=== PATIENT | male | born 1990 ===

== ENCOUNTER 2019-01-13 13:40 | Emergency (ER) | payer OTHER ==
[2019-01-13 13:50] VITALS: BP 152/83
[2019-01-13] MEDS ORDERED: RINGERS SOLUTION,LACTATED 1,000 ML IV PRN (14:15)
[2019-01-13] MEDS ORDERED: OXYCODONE-ACETAMINOPHEN 5-325 MG TABLET PO ONE (14:17)
--- NOTE | 2019-01-13 14:20 | ER Document Report ---
ED Eye Complaint - General Chief Complaint: Chemical Exposure in Eye Stated Complaint: EYE INJURY Time Seen by Provider: 01/13/19 14:10 Primary Care Provider: ALEJANDRA BARBOSA DO [ACTIVE STAFF] - Follow up as needed TRAVEL OUTSIDE OF THE [place] IN LAST 30 DAYS: No - HPI Patient complains to provider of: Chemical burn to right eye Onset: Just prior to arrival Eye location: Right Injury: Yes Occurred at: Work Quality of pain: Burning Severity: Moderate Pain Level: 4 Exposure: Alkaline chemical Associated symptoms: Burning, Pain Notes: Patient is a 28-year-old male who presents to the emergency room for foreign body/chemical burn to right eye, states he was working with mortar when it splashed up into his eye he attempted to flush it out with saline prior to coming to the emergency department but continues to have pain redness and tearing to the right eye, patient denies medical problems prior to today, denies pain or injury elsewhere - Related Data Allergies/Adverse Reactions: No Known Allergies Allergy (Unverified 01/13/19 13:44) Past Medical History - General Information source: Patient - Social History Smoking Status: Unknown if Ever Smoked Family History: Reviewed & Not Pertinent Review of Systems - Review of Systems Constitutional: No symptoms reported EENT: See HPI Cardiovascular: No symptoms reported Respiratory: No symptoms reported Gastrointestinal: No symptoms reported Genitourinary: No symptoms reported Male Genitourinary: No symptoms reported Musculoskeletal: No symptoms reported Skin: No symptoms reported Hematologic/Lymphatic: No symptoms reported Neurological/Psychological: No symptoms reported -: Yes All other systems reviewed and negative Physical Exam - Vital signs Vitals: Temp Pulse BP Pulse Ox 98.2 F 74 152/83 H 100 01/13/19 13:49 01/13/19 13:49 01/13/19 13:49 01/13/19 13:49 - Notes Notes: - General General appearance: Appears well, Alert In distress: None - HEENT Head: Normocephalic, Atraumatic - Respiratory Respiratory status: No respiratory distress - Cardiovascular Rhythm: Regular - Abdominal Inspection: Normal - Back Back: Normal - Extremities General upper extremity: Normal inspection General lower extremity: Normal inspection - Neurological Neuro grossly intact: Yes Orientation: AAOx4 Darshana Coma Scale Eye Opening: Spontaneous Edison Coma Scale Verbal: Oriented Darshana Coma Scale Motor: Obeys Commands Darshana Coma Scale Total: 15 - Psychological Associated symptoms: Normal affect, Normal mood - Skin Skin Temperature: Warm Skin Moisture: Dry Skin Color: Normal - HEENT Eyes: Tears Conjunctiva: Injected - Right side Cornea: Corneal ulcer, Flourescein stain uptake Extraocular movements intact: Yes Eyelashes: Matted Course - Re-evaluation Re-evalutation: 01/13/19 15:52 Patient discussed with on-call ophthalmology, Dr. Barbosa, recommends starting patient on a fourth generation fluoroquinolone antibiotic eyedrop and provide prescription for erythromycin ointment as well as it can be soothing, advised the patient about his likely continued pain through at least the next 24 hours, requested patient call his office [facility] to arrange a follow-up appointment for tomorrow morning to reevaluate, patient was given these instructions and advised to return if any additional concerns, patient acknowledges understanding and agreement with this plan - Vital Signs Vital signs: Temp Pulse Resp BP Pulse Ox 98.2 F 74 152/83 H 100 01/13/19 13:49 01/13/19 13:49 01/13/19 13:49 01/13/19 13:49 Procedures - Eye Procedure Right Time completed: 16:00 Eye Irrigated w/ Saline (ccs): 1,000 - LR Foreign body removal: Right Alcaine Drops Administered: Yes Fluorescein applied: Right Eyes picture: 1 - chemical burn/ulceration Discharge - Discharge Clinical Impression: Alkaline chemical burn of cornea Qualifiers: Encounter type: initial encounter Laterality: right Qualified Code(s): T54.3X1A - Toxic effect of corrosive alkalis and alkali-like substances, accidental (unintentional), initial encounter Condition: Stable Disposition: HOME, SELF-CARE Instructions: Sandoval ([facility]), Chemical in the Eye ([facility]), Eyedrop Use ([facility]), Oral Narcotic Medication ([facility]) Additional Instructions: Call Dr Barbosa's office immediately to arrange for a follow-up appointment first thing tomorrow morning. Return to the emergency room immediately if symptoms worsen or any additional concerns. Prescriptions: Erythromycin Base [Erythromycin Oph 1 gm Oint Ud] 1 applic OP QID #1 tube Moxifloxacin HCl [Moxifloxacin] 3 ml OP QID #1 drops Oxycodone HCl/Acetaminophen [Percocet 5-325 mg Tablet] 1 - 2 tab PO ASDIR PRN #15 tablet PRN Reason: Forms: Return to Work Referrals: ALEJANDRA BARBOSA DO [ACTIVE STAFF] - Follow up as needed
[2019-01-13] MEDS ORDERED: ERYTHROMYCIN 0.5% OPH OINT 1 GM UNIT DOSE OD SCH (18:00)
== END 2019-01-13 16:30 | disposition home or self-care (01) ==
LOC: ER 13:40
DX: T54.3X1A Toxic effect of corrosive alkalis and alkali-like substances, accidental (unintentional), initial encounter (principal); X58.XXXA Exposure to other specified factors, initial encounter; Y99.0 Civilian activity done for income or pay
CPT/HCPCS: 99283; 96360; J7120